=== PATIENT | male | born 1960 | race Two or more races ===

== ENCOUNTER 2018-03-31 08:59 | Outpatient (CLI) | payer OTHER ==
[~2018-03-31 08:59] MED LIST: VASOTEC5 MG
[2018-04-08] MEDS ORDERED: MILLIPRED5 MG (19:10)
[2018-04-08] MEDS ORDERED: SIMVASTATIN20 MG (19:11)
[2018-04-08] MEDS ORDERED: ATENOLOL25 MG (19:11)
[2018-04-08] MEDS ORDERED: FOLIC ACID1 MG (19:12)
[2018-04-08] MEDS ORDERED: NAPROXEN500 MG (19:12)
== END 2018-03-31 09:02 | disposition home or self-care (01) ==
LOC: NUCLEAR 08:59
DX: M81.0 Age-related osteoporosis without current pathological fracture (principal)

== ENCOUNTER → 2018-04-08 | Emergency (ER) | payer OTHER ==
[~2018-04-08] VITALS: Ht 170.2 cm; Wt 79.4 kg
[~2018-04-08] MED LIST changes: +ATENOLOL25 MG; +FOLIC ACID1 MG; +MILLIPRED5 MG; +NAPROXEN500 MG; +SIMVASTATIN20 MG
== END | disposition home or self-care (01) ==
LOC: ER 18:56
DX: R06.6 Hiccough (principal)

== ENCOUNTER 2020-10-17 12:41 | Outpatient (CLI) | payer OTHER | END 2020-10-17 12:42 | disposition home or self-care (01) | LOC: RAD 12:41 | PROVIDERS: ATTEND Internal Medicine Geriatric Medicine | DX: I11.9 Hypertensive heart disease without heart failure (principal); R06.02 Shortness of breath ==

== ENCOUNTER → 2021-07-05 | Outpatient (CLI) | payer OTHER | END | disposition home or self-care (01) | LOC: PPH VACUNA 08:00 | PROVIDERS: ATTEND Emergency Medicine Pediatric Emergency Medicine | DX: Z23 Encounter for immunization (principal) ==

== ENCOUNTER 2021-11-14 12:58 | Outpatient (CLI) | payer OTHER | END 2021-11-14 12:59 | disposition home or self-care (01) | LOC: NUCLEAR 12:58 | PROVIDERS: ATTEND Internal Medicine Rheumatology | DX: M81.0 Age-related osteoporosis without current pathological fracture (principal) ==

== ENCOUNTER 2022-09-01 21:50 | Emergency (ER) | payer OTHER ==
[~2022-09-01] VITALS: Ht 165.1 cm; Wt 62.1 kg
== END 2022-09-02 06:06 | disposition home or self-care (01) ==
LOC: ER 21:50
DX: K52.9 Noninfective gastroenteritis and colitis, unspecified (principal)

== ENCOUNTER 2022-09-04 11:58 | Emergency (ER) | payer OTHER ==
[~2022-09-04] VITALS: Ht 165.1 cm; Wt 61.2 kg
== END 2022-09-04 16:17 | disposition home or self-care (01) ==
LOC: ER 11:58
DX: K29.70 Gastritis, unspecified, without bleeding (principal); K21.9 Gastro-esophageal reflux disease without esophagitis

== ENCOUNTER 2023-11-16 12:44 | Outpatient (CLI) | payer OTHER | END 2023-11-16 13:05 | disposition home or self-care (01) | LOC: NUCLEAR 12:44 | PROVIDERS: ATTEND Internal Medicine Rheumatology | DX: M85.859 Other specified disorders of bone density and structure, unspecified thigh (principal); M81.0 Age-related osteoporosis without current pathological fracture ==

== ENCOUNTER 2024-09-09 08:41 | Outpatient (CLI) | payer OTHER | END 2024-09-09 08:43 | disposition home or self-care (01) | LOC: SONOGRAMA 08:41 | PROVIDERS: ATTEND Internal Medicine Rheumatology | DX: M75.52 Bursitis of left shoulder (principal) ==

== ENCOUNTER 2025-02-28 12:04 | Emergency (ER) | payer OTHER ==
[~2025-02-28] VITALS: Ht 165.1 cm; Wt 60.8 kg
[2025-02-28] MEDS ORDERED: ALLEGRA ALLERG180 MG PO (12:57)
[2025-02-28] MEDS ORDERED: DIPHENHYDRAMINE HCL 50 MG/ML VIAL 1ML ONE (13:00)
[2025-02-28] MEDS ORDERED: METHYLPREDNISOLONE SOD SUCC 125 MG VIAL ONE (13:00)
[2025-02-28] MEDS ORDERED: DIPHENHYDRAMINE HCL 50 MG/ML VIAL 1ML IM ONE (13:00)
[2025-02-28] MEDS ORDERED: METHYLPREDNISOLONE SOD SUCC 125 MG VIAL IM ONE (13:00)
== END 2025-02-28 13:42 | disposition home or self-care (01) ==
LOC: ER 12:04
DX: T78.40XA Allergy, unspecified, initial encounter (principal); R21 Rash and other nonspecific skin eruption
CPT/HCPCS: 96372; 99282; J1200; J3490